=== PATIENT | female | born 1935 | race Hispanic/Latino ===

== ENCOUNTER → 2017-11-08 | Outpatient (CLI) | payer OTHER ==
[~2017-11-08] MED LIST: ALPR0.5T8 PO; AMLO5TAB7 PO; ASPI-1181 PO; CLOP75TA14 PO; IOPAMIDOL-370 100 ML VIAL IV ONE; ISOVUE-370 50ML VIAL IV ONE; LOSA100T20 PO; METO-408 PO; OMEP20CA10 PO; ROSU20TA PO; SERT50TA12 PO; TRAM50TA4 PO
== END | disposition home or self-care (01) ==
LOC: OIH 07:47
PROVIDERS: ATTEND Internal Medicine Cardiovascular Disease
DX: I71.4 Abdominal aortic aneurysm, without rupture (principal); I25.10 Atherosclerotic heart disease of native coronary artery without angina pectoris; K43.9 Ventral hernia without obstruction or gangrene; M47.895 Other spondylosis, thoracolumbar region; N32.89 Other specified disorders of bladder; I70.1 Atherosclerosis of renal artery; I77.4 Celiac artery compression syndrome; N20.0 Calculus of kidney; N26.1 Atrophy of kidney (terminal); J84.10 Pulmonary fibrosis, unspecified
CPT/HCPCS: 75635; Q9967 ×2